=== PATIENT | female | born 1960 | race Caucasian/White ===

== ENCOUNTER → 2022-02-08 | Outpatient (CLI) | payer OTHER ==
[2022-02-08 12:37] LABS: Thyroid Stimulating Hormone 2.82 uIU/mL (0.360-4.800); Thyroxine (T4) 6.2 ug/dL (4.8-13.9)
== END | disposition home or self-care (01) ==
LOC: LAB SHORT 11:02
PROVIDERS: Family Medicine
DX: E03.9 Hypothyroidism, unspecified (principal)
CPT/HCPCS: 84436; 84443

== ENCOUNTER → 2025-09-27 | Outpatient (CLI) | payer MEDICARE, OTHER | LOC: LAB SHORT 09:43 → LAB 09:43 | DX: J02.9 Acute pharyngitis, unspecified (principal) | CPT/HCPCS: 87081 ==